=== PATIENT | female | born 2000 | race Two or more races ===

== ENCOUNTER 2021-10-25 01:21 | Emergency (ER) | payer SELFPAY ==
[~2021-10-25] VITALS: Ht 160 cm; Wt 61.5 kg
--- NOTE | 2021-10-25 01:40 | PHYS DOC ---
Past Medical History Past Medical History: No Pertinent History Smoking Status: Never Smoker Alcohol Use: None Drug Use: None General Adult EDM: Chief Complaint: ABDOMINAL PAIN HPI: HPI: Patient is a 21 year old female who is here with multiple complaints. She reports greater than 2-year history of generalized chest pain, no change in symptoms today. She also reports several weeks of diffuse, generalized abdominal pain. She reports occasional nausea, vomiting, diarrhea and constipation. She last had a normal bowel movement in the last 24 hours. She denies urinary symptoms. LMP 2 months ago. She is requesting a test. She denies vaginal discharge or bleeding at present. She denies any abdominal or chest trauma. He does report having a mild, dry cough. No fevers or chills. She denies dyspnea, denies pleuritic pain. Denies lower extremity pain or swelling. Denies dizziness, diaphoresis. No recent travel, no recent hospitalization, no known sick contacts. She has not taken anything for the pain. She finally does admit that she has had various abdominal pain symptoms for greater than 2 years as well. She does not currently have a primary care physician. Review of Systems: Review of Systems: Constitutional: Denies fever or chills. [] Eyes: Denies change in visual acuity. [] HENT: Denies nasal congestion or sore throat. [] Respiratory: Occasional, dry cough. No dyspnea reported Cardiovascular: Chronic chest pain reported. No peripheral edema. No palpitations or syncope reported. GI: Generalized abdominal pain, occasional nausea and vomiting, occasional constipation and diarrhea. Denies melena, medic easier, hematemesis : Denies urinary symptoms. Musculoskeletal: Denies back pain or joint pain. [] Integument: Denies rash. [] Neurologic: Denies headache, focal weakness or sensory changes. [] Psychiatric: Denies depression or anxiety. [] Heart Score: C/O Chest Pain: Yes HEART Score for Chest Pain: HEART Score for Chest Pain Response (Comments) Value History Slighlty/Non-Suspicious 0 ECG Normal 0 Age < 45 0 Risk Factors No Risk Factors 0 Troponin < Normal Limit 0 Total 0 Risk Factors: Risk Factors: DM, Current or recent (<one month) smoker, HTN, HLP, family history of CAD, obesity. Risk Scores: Score 0 - 3: 2.5% MACE over next 6 weeks - Discharge Home Score 4 - 6: 20.3% MACE over next 6 weeks - Admit for Clinical Observation Score 7 - 10: 72.7% MACE over next 6 weeks - Early Invasive Strategies Physical Exam: PE: Constitutional: Well developed, well nourished, no acute distress, non-toxic appearance. [] HENT: Normocephalic, atraumatic, mucous membranes are moist Eyes: Sclera are anicteric. Neck: Normal range of motion, no tenderness, supple, no stridor. Trachea midline, no JVD. Cardiovascular:Heart rate regular rhythm, +2 radial pulses bilaterally, +2 dorsalis pedis pulses bilaterally Lungs & Thorax: Bilateral breath sounds clear to auscultation, no chest wall trauma or injury, no rales, rhonchi or wheezes Abdomen: Abdomen soft, nondistended, mild periumbilical and epigastric tenderness to palpation. No focal right or left lower quadrant tenderness. No rebound tenderness. No guarding. No rigidity. No palpable pulsatile mass. No flank or abdominal ecchymoses. No CVA tenderness. Normal bowel sounds. Nonsurgical abdomen. Skin: Warm, dry, no erythema, no rash. No jaundice. Back: No tenderness, no CVA tenderness. [] Extremities: No tenderness, no cyanosis, no clubbing, ROM intact, no edema. No calf tenderness. Neurologic: Alert and oriented X 3, normal motor function, normal sensory function, no focal deficits noted. [] Psychologic: Affect normal, judgement normal, mood normal. [] EKG: EKG: EKG [place] interpreted at 0135 Rhythm is sinus tachycardia Rate is 107 bpm [place] is normal artifact No STEMI Radiology/Procedures: Radiology/Procedures: IMAGING REPORT Signed PATIENT: JULIOCESAR JUAREZ ACCOUNT: [id number] : 2000 LOCATION: ER AGE: 21 SEX: F EXAM STATUS: REG ER ORD. PHYSICIAN: DONAVAN CLARKE DO REASON: abd pain, n/v, leukocytosis, OMNI 300 75 ML IV PROCEDURE: CT ABD PELV W/ IV CONTRST ONLY CT ABDOMEN+PELVIS W History: Abdominal pain, nausea and vomiting, leukocytosis. Comparison: None. Technique: CT of the abdomen and pelvis with intravenous contrast. Findings: The lung bases are clear. Liver, gallbladder, pancreas, spleen, adrenal glands, and kidneys are unremarkable. Bladder, uterus and adnexa are within normal limits. The stomach is within normal limits. Small bowel is nondilated. There is mild fecalization of the terminal ileum. The appendix is normal. Mild stool burden at the cecum and ascending colon. The transverse and descending colon is relatively decompressed. Gas-filled sigmoid with stool at the rectum. No intra-abdominal free air or free fluid. Vasculature is within normal limits. No adenopathy. Soft tissues and osseous structures are unremarkable. Impression: 1. No acute findings in the abdomen and pelvis. ------ Exposure: One or more of the following individualized dose reduction techniques were utilized for this examination: 1. Automated exposure control 2. Adjustment of the mA and/or kV according to patient size 3. Use of iterative reconstruction technique. Electronically signed by: Yves Olsen MD (10/25/2021 4:29 AM) [facility] DICTATED and SIGNED BY: YVES OLSEN MD DATE: 10/25/21425 Course & Med Decision Making: Course & Med Decision Making Pertinent Labs and Imaging studies reviewed. (See chart for details) Patient is given IV fentanyl, Zofran, IV fluids. She is resting comfortably, manifest no evidence of distress. She has a nonsurgical, benign abdominal exam. Imaging studies and laboratory exams are unremarkable. test is negative. I discussed the findings, differential diagnosis and plan of care with her. There is no indication for further invasive exams, imaging or admission at this time. She is given outpatient resources for a primary care physician. Return precautions are given. [place] Disclaimer: [place] Disclaimer: This electronic medical record was generated, in whole or in part, using a voice recognition dictation system. Departure Departure Impression: Primary Impression: Generalized abdominal pain Additional Impression: Chronic chest pain Disposition: HOME / SELF CARE / HOMELESS Condition: STABLE Referrals: NO PCP (PCP) Patient Instructions: Abdominal Pain (Nonspecific), Chest Pain (Nonspecific) Additional Instructions: Please return to the ER if you develop any acute changes in your chronic chest pain, if you develop shortness of breath, more severe abdominal pain, uncontrolled vomiting, dehydration or other concerns. Please follow-up with your primary care physician. Use the nausea medicine as needed/as directed. Scripts Ondansetron Hcl (ONDANSETRON HCL) 4 Mg Tablet 1 TAB PO PRN Q6HRS for vomiting, #20 TAB 1 Refill Prov: DONAVAN CLARKE DO 10/25/21 DONAVAN CLARKE DO Oct 25, 2021 01:40
[2021-10-25 01:52] LABS: U PREG PATIENT NEGATIVE (NEG)
[2021-10-25 01:56] LABS: BILIRUBIN,URINE NEGATIVE (NEG); CLARITY,URINE HAZY; COLOR,URINE YELLOW; NITRITE,URINE NEGATIVE (NEG); PH,URINE 7.5 (<5.0-8.0); PROTEIN,URINE NEGATIVE (NEG-TRACE)
[2021-10-25 01:57] LABS: AMORPHOUS SEDIMENT,UR PRESENT /HPF; BACTERIA,URINE FEW /HPF (0-FEW); RBC,URINE 0 /HPF (0-2); WBC,URINE OCC /HPF (0-4)
[2021-10-25 02:35] LABS: BASO # 0.1 x10^3/uL (0.0-0.2); BASO % 1 % (0-3); EOS # 0.3 x10^3/uL (0.0-0.7); EOS % 2 % (0-3); HEMATOCRIT 37.4 % (36.0-47.0); HEMOGLOBIN 12.3 g/dL (12.0-15.5); LYMPH # 4.1 x10^3/uL (1.0-4.8); LYMPH % 31 % (24-48); MEAN CORPUSCULAR HEMOGLOBIN 28 pg (25-35); MEAN CORPUSCULAR HGB CONC 33 g/dL (31-37); MEAN CORPUSCULAR VOLUME 86 fL (79-100); MONO # 1.2 x10^3/uL (0.0-1.1); MONO % 9 % (0-9); NEUT # 7.8 x10^3/uL (1.8-7.7); NEUT % 58 % (31-73); PLATELET COUNT 345 x10^3/uL (140-400); RED BLOOD COUNT 4.37 x10^6/uL (3.50-5.40); WHITE BLOOD COUNT 13.4 x10^3/uL (4.0-11.0)
[2021-10-25 02:48] LABS: CALCIUM 9.1 mg/dL (8.5-10.1); CREATININE 0.7 mg/dL (0.6-1.0); GFR 106.7; POTASSIUM 3.3 mmol/L (3.5-5.1)
[2021-10-25 02:53] LABS: ALBUMIN 3.5 g/dL (3.4-5.0); ALBUMIN/GLOBULIN RATIO 0.7 (1.0-1.7); TOTAL BILIRUBIN 0.3 mg/dL (0.2-1.0); TOTAL PROTEIN 8.2 g/dL (6.4-8.2)
[2021-10-25] MEDS ORDERED: ONDANSETRON PF 4 MG/2 ML VIAL. IVP ONE (03:37)
[2021-10-25] MEDS ORDERED: IV NORMAL SALINE 1000ML BAG 1,000 ML IV ONE (03:37)
[2021-10-25] MEDS ORDERED: fentaNYL PF VIAL 100 MCG/2 ML VIAL IVP ONE (03:37)
[2021-10-25] MEDS ORDERED: CONTRAST GIVEN. MC PRN (04:00)
[2021-10-25] MEDS ORDERED: IOHEXOL 300 MG/ML 100ML VIAL. IV ONE (04:00)
--- NOTE | 2021-10-25 04:32 | RAD ---
CT ABDOMEN+PELVIS W History: Abdominal pain, nausea and vomiting, leukocytosis. Comparison: None. Technique: CT of the abdomen and pelvis with intravenous contrast. Findings: The lung bases are clear. Liver, gallbladder, pancreas, spleen, adrenal glands, and kidneys are unrem arkable. Bladder, uterus and adnexa are within normal limits. The stomach is within normal limits. Small bowel is nondilated. There is mild fecalization of the ter robert ileum. The appendix is normal. Mild stool burden at the cecum and ascending colon. The transver se and descending colon is relatively decompressed. Gas-filled sigmoid with stool at the rectum. No intra-abdominal free air or free fluid. Vasculature is within normal limits. No adenopathy. Soft t issues and osseous structures are unremarkable. Impression: 1. No acute findings in the abdomen and pelvis. ------ Exposure: One or more of the following individualized dose reduction techniques were utilized for thi s examination: 1. Automated exposure control 2. Adjustment of the mA and/or kV according to patient size 3. Use of iterative reconstruction technique. Electronically signed by: Yves Olsen MD (10/25/2021 4:29 AM) [facility]
[2021-10-25 04:56] VITALS: BP 93/58
[2021-10-25] MEDS ORDERED: ONDA-84 PO (05:18)
== END 2021-10-25 05:28 | disposition home or self-care (01) ==
LOC: ER 01:21
DX: R10.84 Generalized abdominal pain (principal); G89.29 Other chronic pain; R07.89 Other chest pain; R11.2 Nausea with vomiting, unspecified
CPT/HCPCS: 36415; 74177; 80053; 81001; 81025; 83690; 84484; 85025; 96361; 96374; 96375; 99285; J2405; J3010; J7030; Q9967